=== PATIENT | male | born 1955 | race Caucasian/White ===

== ENCOUNTER 2018-03-14 17:05 | Inpatient (IN) | END 2018-03-27 12:40 | disposition left against medical advice (07) | DRG 291 ==

== ENCOUNTER 2018-08-06 13:16 | Emergency (ER) | payer OTHER ==
[~2018-08-06] VITALS: Wt 96.7 kg
[~2018-08-06 13:16] MED LIST: AMLO-147 PO; AMLO2.5T78 PO; AZIT250T13 PO; BUDE0.5A HHN; CARV12.579 PO; CARV25TA79 PO; FOLI-49 PO; FURO40TA4 PO; HYDR-3670 PO; ISOS10TA2 PO; SIMV20TA PO; SITA100T11 PO; WARF2.5T PO
[2018-08-06 13:19] VITALS: BP 124/67; PULSE 59; RESP 18
--- NOTE | 2018-08-06 14:29 | ERD ---
ER Documentation Chief Complaint Chief Complaint NECK PAIN RAD LEFT ARM X 2 DAYS, WOKE UP WITH THIS HPI 63-year-old male, with multiple medical problems including coronary artery bypass 20 years ago at [facility], [facility], hypertension, hyperlipidemia, CKD, diabetes, and congestive heart failure, presents to the emergency department, complaining of left shoulder pain for 2 days after falling asleep on that side of the body. The pain is dull, deep, will localized in the lateral aspect of the shoulder, exacerbated by arm abduction and external rotation. The patient has been taking Tylenol with mild improvement of the symptoms. He denies distal weakness, numbness or tingling. No chest pain, no shortness of breath. ROS All systems reviewed and are negative except as per history of present illness. Medications Home Meds Active Scripts Hydrocodone/Acetaminophen ([place] 5-325 Tablet) 1 Each Tablet, 1 TAB PO QHS PRN for PAIN, #7 TAB Prov:ANDREW VALLE MD 08/06/18 Methyl Salicylate/Menthol (Salonpas Patch) 1 Each Adh..patch, 1 EACH TP BID, #12 Prov:ANDREW VALLE MD 08/06/18 Prednisone* (Prednisone*) 20 Mg Tab, 40 MG PO DAILY for 5 Days, TAB Prov:ANDREW VALLE MD 08/06/18 Budesonide* (Budesonide*) 0.5 Mg/2 Ml Ampul.neb, 0.5 MG HHN BID RESP THERAPY for 7 Days Prov:DAMASO GUTIERREZ MD 03/27/18 Isosorbide Dinitrate* (Isordil*) 10 Mg Tablet, 10 MG PO TID for 30 Days, TAB Prov:DAMASO GUTIERREZ MD 03/27/18 Hydralazine Hcl* (Hydralazine Hcl*) 10 Mg Tablet, 10 MG PO Q8 for 30 Days, TAB Prov:DAMASO GUTIERREZ MD 03/27/18 Carvedilol* (Carvedilol*) 12.5 Mg Tablet, 12.5 MG PO BID for 30 Days, TAB Prov:DAMASO GUTIERREZ MD 03/27/18 Amlodipine Besylate* (Amlodipine Besylate*) 2.5 Mg Tablet, 2.5 MG PO DAILY for 30 Days, TAB Prov:DAMASO GUTIERREZ MD 03/27/18 Azithromycin* (Azithromycin*) 250 Mg Tablet, 500 MG PO DAILY for 4 Days, TAB Prov:DAMASO GUTIERREZ MD 03/27/18 Furosemide* (Furosemide*) 40 Mg Tablet, 40 MG PO DAILY for 30 Days, TAB Prov:DAMASO GUTIERREZ MD 03/27/18 Reported Medications Warfarin Sodium* (Coumadin*) 2.5 Mg Tablet, 5 MG PO BID, TAB 03/14/18 Simvastatin* (Zocor*) 20 Mg Tablet, 20 MG PO QHS, #30 TAB 03/14/18 Sitagliptin* (Januvia*) 100 Mg Tablet, 100 MG PO DAILY, #30 TAB 03/14/18 Folic Acid* (Folic Acid*) 1 Mg Tablet, 1 MG PO DAILY, TAB 03/14/18 Amlodipine Besylate* (Amlodipine Besylate*) 10 Mg Tablet, 10 MG PO DAILY, #30 TAB 03/14/18 Carvedilol* (Carvedilol*) 25 Mg Tablet, 25 MG PO BID, #60 TAB 03/14/18 Allergies Allergies: Coded Allergies: No Known Allergy (Unverified , 03/14/18) PMhx/Soc History of Surgery: Yes (Pacemaker, quadruple bypass) Anesthesia Reaction: No Hx Neurological Disorder: No Hx Respiratory Disorders: Yes (coughing, sob) Hx Cardiac Disorders: Yes (HTN, CHF) Hx Psychiatric Problems: No Hx Miscellaneous Medical Probl: No Hx Alcohol Use: No Hx Substance Use: No Hx Tobacco Use: No FmHx Family History: diabetes, coronary disease Physical Exam Vitals Vital Signs Date Temp Pulse Resp B/P (MAP) Pulse Ox O2 O2 Flow FiO2 Time Delivery Rate 08/06/18 98.1 59 18 124/67 99 13:19 (86) Physical Exam Const: No acute distress Head: Atraumatic Eyes: Normal Conjunctiva ENT: Normal External Ears, Nose and Mouth. Neck: Full range of motion. No meningismus. Resp: Clear to auscultation bilaterally Cardio: Regular rate and rhythm, no murmurs Abd: Soft, non tender, non distended. Normal bowel sounds Skin: No petechiae or rashes Back: No midline or flank tenderness Ext: Normal shoulder inspection, tenderness with abduction, distal neurovascular exam intact, no cyanosis, or edema Neur: Awake and alert Psych: Normal Mood and Affect Procedures/MDM Acute left shoulder pain: no red flags. Differential diagnosis include but not limited to: Shoulder contusion, rotator cuff injury, tendon/ligament injury, arthritis; low suspicion for fracture, dislocation, septic arthritis. Neurova scular exam grossly intact. no clinical findings suggestive of acute infectious process, no acute deformity, no edema, no rashes. Physical examination and clinical presentation consistent most likely with left shoulder tendinitis Results and clinical impression discussed with the patient who agrees with management. The patient is stable to be treated outpatient and will be discharg ed home with recommendations for ice, rest and [place] with prednisone for 5 days and close monitoring. The patient was instructed to follow up with the primary care provider in the next 48h. If symptoms persist, worsen or new symptoms develop, then patient should return to the ED immediately. Instructions explained and given to patient with acknowledgment and demonstrated understanding. Disclaimer: Inadvertent spelling and grammatical errors are likely due to EHR/dictation software use and do not reflect on the overall quality of patient care. Also, please note that the electronic time recorded on this note does not necessarily reflect the actual time of the patient encounter. Departure Diagnosis: Primary Impression: Left shoulder tendinitis Condition: Stable Additional Instructions: Thank you very much for allowing us to participate in your care. Your health and safety is our top priority at [facility]. The evaluation in the emergency department has been done to rule out an acute emergency, therefore, chronic conditions like malignancy or other diseases have not been evaluated; therefore, you need to follow up with a primary care simon gómez in the next 48h. If symptoms persist, worsen or new symptoms develop, then patient should return to the ED immediately. Call your primary care doctor TOMORROW for an appointment during the next 2-4 days and bring all the information provided. Have prescriptions filled and follow precisely the directions on the label. If the symptoms get worse and your provider is unavailable, return to the Emergency Department immediately. ANDREW VALLE MD August 06, 2018 14:29
[2018-08-06] MEDS ORDERED: METH1ADH5 TP (14:31)
[2018-08-06] MEDS ORDERED: PRED20TA PO (14:31)
[2018-08-06] MEDS ORDERED: HYDR-4011 PO (14:41)
== END 2018-08-06 14:47 | disposition home or self-care (01) ==
LOC: FTE 13:16
DX: M75.92 Shoulder lesion, unspecified, left shoulder (principal); M75.91 Shoulder lesion, unspecified, right shoulder; I13.0 Hypertensive heart and chronic kidney disease with heart failure and stage 1 through stage 4 chronic kidney disease, or unspecified chronic kidney disease; I50.9 Heart failure, unspecified; N18.9 Chronic kidney disease, unspecified; E11.9 Type 2 diabetes mellitus without complications; Z79.84 Long term (current) use of oral hypoglycemic drugs; Z95.0 Presence of cardiac pacemaker
CPT/HCPCS: 93005; Z7502

== ENCOUNTER 2018-10-25 11:22 | Emergency (ER) | payer OTHER ==
[~2018-10-25] VITALS: Ht 170.2 cm; Wt 99.9 kg
[~2018-10-25 11:22] MED LIST changes: +HYDR-4011 PO; +HYDR10TA36 PO; +ISOS20TA19 PO; +LANT3I SC; +METH1ADH5 TP; +OLME5TAB4 PO; +PRED20TA PO
[2018-10-25 11:30] VITALS: Ht 170.2 cm; Wt 99.9 kg
--- NOTE | 2018-10-25 12:03 | ERD ---
ER Documentation Chief Complaint Chief Complaint non radiating pressure like pain @ left chest area started @ 3 am HPI Patient with history of CHF and multiple ACS events in the past presented with chest pain for 9 hours. Patient ate junk food last night half an hour later felt some mild discomfort in his chest. This does not feel like his prior heart attacks per patient. Pain is alleviated with ambulation. No shortness of br eath, no nausea or vomiting however patient does have a lot of burping. No infectious symptoms. Has been compliant with medications except not taking his blood pressure medication last night. No recent traveling or antibiotics. Patient states he is at his baseline weight. ROS All systems reviewed and are negative except as per history of present illness. Medications Home Meds Active Scripts Hydrocodone/Acetaminophen ([place] 5-325 Tablet) 1 Each Tablet, 1 TAB PO QHS PRN for PAIN, #7 TAB Prov:ANDREW VALLE MD 08/06/18 Methyl Salicylate/Menthol (Salonpas Patch) 1 Each Adh..patch, 1 EACH TP BID, #12 Prov:ANDREW VALLE MD 08/06/18 Prednisone* (Prednisone*) 20 Mg Tab, 40 MG PO DAILY for 5 Days, TAB Prov:ANDREW VALLE MD 08/06/18 Budesonide* (Budesonide*) 0.5 Mg/2 Ml Ampul.neb, 0.5 MG HHN BID RESP THERAPY for 7 Days Prov:DAMASO GUTIERREZ MD 03/27/18 Isosorbide Dinitrate* (Isordil*) 10 Mg Tablet, 10 MG PO TID for 30 Days, TAB Prov:DAMASO GUTIERREZ MD 03/27/18 Hydralazine Hcl* (Hydralazine Hcl*) 10 Mg Tablet, 10 MG PO Q8 for 30 Days, TAB Prov:DAMASO GUTIERREZ MD 03/27/18 Carvedilol* (Carvedilol*) 12.5 Mg Tablet, 12.5 MG PO BID for 30 Days, TAB Prov:DAMASO GUTIERREZ MD 03/27/18 Amlodipine Besylate* (Amlodipine Besylate*) 2.5 Mg Tablet, 2.5 MG PO DAILY for 30 Days, TAB Prov:DAMASO GUTIERREZ MD 03/27/18 Azithromycin* (Azithromycin*) 250 Mg Tablet, 500 MG PO DAILY for 4 Days, TAB Prov:DAMASO GUTIERREZ MD 03/27/18 Furosemide* (Furosemide*) 40 Mg Tablet, 40 MG PO DAILY for 30 Days, TAB Prov:DAMASO GUTIERREZ MD 03/27/18 Reported Medications Warfarin Sodium* (Coumadin*) 2.5 Mg Tablet, 5 MG PO BID, TAB 03/14/18 Simvastatin* (Zocor*) 20 Mg Tablet, 20 MG PO QHS, #30 TAB 03/14/18 Sitagliptin* (Januvia*) 100 Mg Tablet, 100 MG PO DAILY, #30 TAB 03/14/18 Folic Acid* (Folic Acid*) 1 Mg Tablet, 1 MG PO DAILY, TAB 03/14/18 Amlodipine Besylate* (Amlodipine Besylate*) 10 Mg Tablet, 10 MG PO DAILY, #30 T AB 03/14/18 Carvedilol* (Carvedilol*) 25 Mg Tablet, 25 MG PO BID, #60 TAB 03/14/18 Allergies Allergies: Coded Allergies: No Known Allergy (Unverified , 03/14/18) PMhx/Soc History of Surgery: Yes (Pacemaker, quadruple bypass) Anesthesia Reaction: No Hx Neurological Disorder: No Hx Respiratory Disorders: Yes (coughing, sob) Hx Cardiac Disorders: Yes (HTN, CHF) Hx Psychiatric Problems: No Hx Miscellaneous Medical Probl: No (dm) Hx Alcohol Use: No Hx Substance Use: No Hx Tobacco Use: No Physical Exam Vitals Vital Signs Date Temp Pulse Resp B/P (MAP) Pulse Ox O2 O2 Flow FiO2 Time Delivery Rate 10/25/18 58 18 122/69 98 Room Air 12:10 (86) 10/25/18 97.3 55 20 107/65 98 11:30 (79) Physical Exam Const: No acute distress Head: Atraumatic Eyes: Normal Conjunctiva ENT: Normal External Ears, Nose and Mouth. Neck: Full range of motion. No meningismus. Resp: Clear to auscultation bilaterally Cardio: Regular rate and rhythm, no murmurs Abd: Soft, non tender, non distended. Normal bowel sounds Skin: No petechiae or rashes Back: No midline or flank tenderness Ext: No cyanosis, mild bilateral edema Neur: Awake and alert Psych: Normal Mood and Affect Result Diagram: 10/25/18 1205 10/25/18 1205 Results 24 hrs Laboratory Tests Test 10/25/18 12:05 White Blood Count 5.6 10^3/ul Red Blood Count 4.74 10^6/ul Hemoglobin 13.1 g/dl Hematocrit 41.0 % Mean Corpuscular Volume 86.5 fl Mean Corpuscular Hemoglobin 27.6 pg Mean Corpuscular Hemoglobin Concent 32.0 g/dl Red Cell Distribution Width 13.8 % Platelet Count 169 10^3/UL Mean Platelet Volume 12.6 fl Immature Granulocytes % 0.400 % Neutrophils % 70.1 % Lymphocytes % 15.1 % Monocytes % 11.3 % Eosinophils % 2.2 % Basophils % 0.9 % Nucleated Red Blood Cells % 0.0 /100WBC Immature Granulocytes # 0.020 10^3/ul Neutrophils # 3.9 10^3/ul Lymphocytes # 0.8 10^3/ul Monocytes # 0.6 10^3/ul Eosinophils # 0.1 10^3/ul Basophils # 0.1 10^3/ul Nucleated Red Blood Cells # 0.0 10^3/ul Sodium Level 139 mmol/L Potassium Level 4.8 mmol/L Chloride Level 106 mmol/L Carbon Dioxide Level 22 mmol/L Anion Gap 11 Blood Urea Nitrogen 37 mg/dl Creatinine 1.76 mg/dl Est Glomerular Filtrat Rate mL/min 39 mL/min Glucose Level 128 mg/dl Calcium Level 9.2 mg/dl Troponin I 0.100 ng/ml Current Medications Medications Dose Sig/[place] Start Time Status Last (Trade) Ordered Route PRN Stop Time Admin Dose Reason Admin Al 30 ml ONCE ONCE 10/25/18 DC 10/25/18 Hydrox/Mg PO 12:30 12:35 Hydrox/Simeth 10/25/18 12:31 icone (Mag-Al Plus) Procedures/MDM Patient presents with epigastric abdominal pain and chest pain most likely secondary to dyspepsia or non-acute abdominal etiology. No peritoneal signs on abdominal exam. Patients symptoms near resolved with GI cocktail. EKG is unchanged from prior, troponin is negative after 9 hours of pain, chest pain is atypical as it is improving with exertion. Low suspicion for ACS at this time. Patient remains PO tolerant. Serial abdominal exam without increase in abdominal pain. Given exam and history, low suspicion for acute abdominal process, such as acute cholecystitis, pancreatitis, perforated viscus, atypical appendicitis or torsion. Extensive conversation about return precautions and need for follow-up. ECG Time: 1129 Ventricular Rate: 54 Rhythm: normal sinus rhythm. Left bundle branch block T wave inversions in anterior lateral leads no change from august 2018 EKG negative [place] criteria No STEMI Patient's laboratory values are at baseline, creatinine is improved since March. Troponin was negative. Chest x-ray shows mild pulmonary edema with no infectious pathology. Chest X-ray 1V Interpreted by me: Soft Tissue: No acute abnormalities Bones: No acute abnormalities Mediastinum/Cardiac Silhouette/Lungs: No acute abnormalities. Pacemaker seen. Mild pulmonary edema. No pneumonia. Impression: No acute pathology Departure Diagnosis: Primary Impression: Chest pain Chest pain type: unspecified Qualified Codes: R07.9 - Chest pain, unspecified Condition: Stable Patient Instructions: Chest Pain, Noncardiac SARAN CHRISTOPHER MD Oct 25, 2018 12:03
[2018-10-25] MEDS ORDERED: AL HYDROX/MG HYDROX/SIMETH 30 ML CUP PO ONE (12:30)
[2018-10-25 13:12] VITALS: BP 124/67; PULSE 56; RESP 20
== END 2018-10-25 15:08 | disposition home or self-care (01) ==
LOC: E/R 11:22
DX: R07.89 Other chest pain (principal); I11.0 Hypertensive heart disease with heart failure; I50.9 Heart failure, unspecified; E11.9 Type 2 diabetes mellitus without complications; Z79.01 Long term (current) use of anticoagulants; Z79.84 Long term (current) use of oral hypoglycemic drugs
CPT/HCPCS: 36415; 71045; 74176; 80048; 84484; 85025; 93005; Z7502; Z7610

== ENCOUNTER 2019-01-17 09:32 | Emergency (ER) | payer OTHER ==
[~2019-01-17] VITALS: Ht 162.6 cm; Wt 80.0 kg
[~2019-01-17 09:32] MED LIST changes: -AMLO-147 PO; -AZIT250T13 PO; -BUDE0.5A HHN; -CARV12.579 PO; +DICL100G37 TOP; -HYDR-3670 PO; -HYDR-4011 PO; -ISOS10TA2 PO; +MAGN400T28 PO; -METH1ADH5 TP; +NAPR-985 PO; -PRED20TA PO; +SOTA160T PO; +SOTA80TA18 PO; +TRAM50TA2 PO
[2019-01-17 09:46] VITALS: BP 134/60; PULSE 63; RESP 18; Ht 162.6 cm; Wt 80.0 kg
== END 2019-01-17 12:16 | disposition home or self-care (01) ==
LOC: FTE 09:32
DX: M19.90 Unspecified osteoarthritis, unspecified site (principal); E11.9 Type 2 diabetes mellitus without complications; I11.0 Hypertensive heart disease with heart failure; I50.9 Heart failure, unspecified; Z79.01 Long term (current) use of anticoagulants; Z79.4 Long term (current) use of insulin; Z87.891 Personal history of nicotine dependence; Z95.0 Presence of cardiac pacemaker; Z95.1 Presence of aortocoronary bypass graft; Z98.61 Coronary angioplasty status
CPT/HCPCS: 73630

== ENCOUNTER 2019-01-23 19:54 | Inpatient (IN) | payer OTHER ==
[~2019-01-23] VITALS: Ht 170.2 cm; Wt 94.2 kg
[2019-01-23] MEDS ORDERED: ONDANSETRON 4 MG INJ IV STA (20:11)
[2019-01-23] MEDS ORDERED: ONDANSETRON 4 MG INJ ONE (20:12)
[2019-01-23] MEDS ORDERED: ACETAMINOPHEN 325 MG TAB PO PRN (22:00)
[2019-01-23] MEDS ORDERED: ONDANSETRON 4 MG INJ IV PRN (22:00)
[2019-01-23 23:55] VITALS: Ht 170.2 cm; Wt 94.2 kg
[2019-01-24] VITALS (7 sets, daily range): BP systolic 133–143; BP diastolic 73–76; PULSE 50–60; RESP 20
[2019-01-24] MEDS ORDERED: ACETAMINOPHEN 325 MG TAB PO PRN (01:30)
[2019-01-24] MEDS ORDERED: ONDANSETRON 4 MG INJ IV PRN ×2 (01:30)
[2019-01-24] MEDS ORDERED: morphine 2 MG INJ IV PRN (01:30)
[2019-01-24] MEDS: ACCU-CHEK XX SCH (02:00)
[2019-01-24] MEDS: INSULIN ASPART [NOVOLOG] 3 ML PEN SC SCH ×4 (07:55→21:00)
[2019-01-24] MEDS ORDERED: AMIODARONE 200 MG TAB PO SCH ×2 (09:00)
[2019-01-24] MEDS ORDERED: NON-FORMULARY/PATIENT OWN MED (Sitagliptin* (Januvia*) 100 MG) PO SCH (09:00)
[2019-01-24] MEDS ORDERED: SOTALOL 80 MG TAB PO SCH ×2 (09:00)
[2019-01-24] MEDS: LINAGLIPTIN 5 MG TABLET PO SCH (10:45)
[2019-01-24] MEDS: FOLIC ACID 1 MG TAB PO SCH (10:45)
[2019-01-24] MEDS: MAGNESIUM OXIDE 400 MG TAB PO SCH ×2 (10:45→21:11)
[2019-01-24] MEDS: WARFARIN 2.5 MG TAB NGT SCH (17:49)
[2019-01-24] MEDS: SOTALOL 80 MG TAB PO SCH (21:00)
[2019-01-24] MEDS ORDERED: NON-FORMULARY/PATIENT OWN MED (Simvastatin* (Zocor*) 20 MG) PO SCH (21:00)
[2019-01-24] MEDS: ATORVASTATIN 10 MG TAB PO SCH (21:11)
[2019-01-25] VITALS (7 sets, daily range): BP systolic 113–151; BP diastolic 58–91; PULSE 52–78; RESP 18–20
[2019-01-25] MEDS: ACCU-CHEK XX SCH ×2 (02:00→21:04)
[2019-01-25] MEDS: SOTALOL 80 MG TAB PO SCH ×2 (08:21→20:17)
[2019-01-25] MEDS: MAGNESIUM OXIDE 400 MG TAB PO SCH ×2 (08:30→20:16)
[2019-01-25] MEDS: FOLIC ACID 1 MG TAB PO SCH (08:30)
[2019-01-25] MEDS: LINAGLIPTIN 5 MG TABLET PO SCH (08:31)
[2019-01-25] MEDS: INSULIN ASPART [NOVOLOG] 3 ML PEN SC SCH ×4 (08:34→20:17)
[2019-01-25] MEDS ORDERED: DEXTROSE 50% 50 ML SYRINGE IV PRN ×2 (14:30)
[2019-01-25] MEDS ORDERED: GLUCOSE GEL 15 GRAM TUBE PO PRN ×2 (14:30)
[2019-01-25] MEDS ORDERED: GLUCOSE GEL 15 GRAM TUBE BUCCAL PRN (14:30)
[2019-01-25] MEDS ORDERED: GLUCAGON 1 MG INJ IM PRN (14:30)
[2019-01-25] MEDS: WARFARIN 2.5 MG TAB NGT SCH (16:41)
[2019-01-25] MEDS ORDERED: FUROSEMIDE 20 MG INJ IV ONE (20:00)
[2019-01-25] MEDS ORDERED: FUROSEMIDE 40 MG INJ ONE (20:10)
[2019-01-25] MEDS: ATORVASTATIN 10 MG TAB PO SCH (20:17)
[2019-01-25] MEDS ORDERED: FUROSEMIDE 40 MG INJ IV ONE (20:30)
[2019-01-26 04:00] VITALS: BP 120/68; PULSE 60; RESP 20
[2019-01-26 07:52] VITALS: BP 151/70; PULSE 58; RESP 18
[2019-01-26] MEDS: INSULIN ASPART [NOVOLOG] 3 ML PEN SC SCH (07:55)
[2019-01-26] MEDS ORDERED: FUROSEMIDE 40 MG TAB PO SCH (09:00)
[2019-01-26] MEDS: FOLIC ACID 1 MG TAB PO SCH (09:25)
[2019-01-26] MEDS: MAGNESIUM OXIDE 400 MG TAB PO SCH (09:25)
[2019-01-26] MEDS: LINAGLIPTIN 5 MG TABLET PO SCH (09:26)
[2019-01-26] MEDS: SOTALOL 80 MG TAB PO SCH (09:26)
[2019-01-26 11:28] VITALS: BP 140/74; PULSE 60; RESP 20
== END 2019-01-26 11:35 | disposition home or self-care (01) | DRG 312 ==
LOC: E/R 19:54 → TEL 22:01
PROVIDERS: ADMIT Internal Medicine; ATTEND Internal Medicine
DX: R55 Syncope and collapse (principal); I47.2 Ventricular tachycardia; N17.9 Acute kidney failure, unspecified; I42.9 Cardiomyopathy, unspecified; D68.9 Coagulation defect, unspecified; Z95.810 Presence of automatic (implantable) cardiac defibrillator; Z95.1 Presence of aortocoronary bypass graft; Z87.891 Personal history of nicotine dependence; I12.9 Hypertensive chronic kidney disease with stage 1 through stage 4 chronic kidney disease, or unspecified chronic kidney disease; N18.3 Chronic kidney disease, stage 3 (moderate); Z86.73 Personal history of transient ischemic attack (TIA), and cerebral infarction without residual deficits; Z79.02 Long term (current) use of antithrombotics/antiplatelets; E11.9 Type 2 diabetes mellitus without complications; I44.7 Left bundle-branch block, unspecified
CPT/HCPCS: 36415; 71045; 80048; 82550; 82553; 82962; 83735; 83880; 84100; 84484; 85025; 85610; 87081; 93005; 93306; 96374; J1815; J1940; J2405

== ENCOUNTER 2019-02-08 22:44 | Emergency (ER) | payer SELFPAY ==
[~2019-02-08] VITALS: Ht 170.2 cm; Wt 97.5 kg
[~2019-02-08 22:44] MED LIST changes: -AMLO2.5T78 PO; -CARV25TA79 PO; -DICL100G37 TOP; -ISOS20TA19 PO; -NAPR-985 PO; -OLME5TAB4 PO; -SOTA160T PO; -TRAM50TA2 PO
[2019-02-08 22:53] VITALS: BP 114/68; PULSE 48; RESP 20; Ht 170.2 cm; Wt 97.5 kg
== END 2019-02-09 00:06 | disposition left against medical advice (07) ==
LOC: E/R 22:44
DX: Z53.21 Procedure and treatment not carried out due to patient leaving prior to being seen by health care provider (principal)
CPT/HCPCS: 93005